=== PATIENT | female | born 1975 | race Caucasian/White ===

== ENCOUNTER 2023-08-11 08:57 | Emergency (ER) | payer OTHER, SELFPAY ==
[2023-08-11 09:14] VITALS: BP 113/69; PULSE 89; RESP 16; TEMP 37; O2SAT 100
--- NOTE | 2023-08-11 09:23 | ED.EYEPROB ---
HPI - Eye Problem General Chief complaint: Eye Problems Stated complaint: Eye Irritation Time Seen by Provider: 08/11/23 09:23 Source: patient Mode of arrival: ambulatory Limitations: no limitations History of Present Illness HPI Narrative: 48 yo F presents with c/o R eye burning, redness, swelling, purulen drainage since yesterday morning. Wears contacts. Does not sleep in them but works 24 hour shifts so wears them for long period of time. Denies vision change. All systems reviewed and negative except as noted above. Related Data Home Medications Medication Instructions Recorded Confirmed No Home Medications 08/11/23 08/11/23 Allergies Allergy/AdvReac Type Severity Reaction Status Date / Time No Known Allergies Allergy Verified 08/11/23 09:29 Review of Systems Review of Systems: CONSTITUTIONAL: Denies fever, chills, or sweats. EYES: Denies visual changes . Reports right eye redness, burning, discharge. ENT: Denies rhinorrhea, congestion, sore throat, or otalgia. CARDIOVASCULAR: Denies chest pain, palpitations, or edema. RESPIRATORY: Denies cough or dyspnea. GASTROINTESTINAL: Denies abdominal pain, nausea, vomiting, or diarrhea. GENITOURINARY: Denies dysuria or hematuria. SKIN: Denies rash or itching. MUSCULOSKELETAL: Denies back pain, joint pain, or myalgia. NEUROLOGIC: Denies headache, numbness, or weakness. PSYCHIATRIC: Denies anxiety or depression. All other systems reviewed are negative, except as documented in HPI. PMFSH Comments At time of signature, agree with nursing past medical, surgical, social and family history. There is no relevant family history pertinent to the presenting complaint. Exam Narrative: GENERAL: This is a well-nourished, well-developed patient, in no apparent distress. HEAD: normocephalic, atraumatic. EYES: PERRL. Sclera and conjunctiva erythematous to right eye. Left sclera and conjunctiva clear/white. yellowish, repeat drainage from right eye. Mild swelling to upper and lower eyelids Of right eye. Vision is grossly intact. EARS: External ears normal NOSE: External nose normal NECK: Neck supple, non-tender without lymphadenopathy, masses or thyromegaly. CARDIOVASCULAR: Regular rate and rhythm without murmurs, gallops, or rubs. RESPIRATORY: Clear to auscultation. Breath sounds equal bilaterally. No wheezes, rales, or rhonchi. SKIN: warm, Dry, intact with no suspicious lesions or rash, good texture and turgor. NEURO: awake, alert, and oriented to person, place and time. There were no obvious focal neurologic abnormalities. EXTREMITIES: No joint tenderness, effusion, or edema noted. Course Course Level of Care: Express Care Visit Vital Signs Vital signs: Vital Signs Temperature 37.0 C 08/11/23 09:14 Pulse Rate 89 08/11/23 09:14 Respiratory Rate 16 08/11/23 09:14 Blood Pressure 113/69 08/11/23 09:14 Pulse Oximetry 100 08/11/23 09:14 Oxygen Delivery Room Air 08/11/23 09:14 Temperature 37.0 C 08/11/23 09:14 Pulse Rate 89 08/11/23 09:14 Respiratory Rate 16 08/11/23 09:14 Blood Pressure 113/69 08/11/23 09:14 Pulse Oximetry 100 08/11/23 09:14 Oxygen Delivery Room Air 08/11/23 09:14 reviewed MDM - Eye Problem MDM Narrative Medical decision making narrative: Patient is aware of diagnosis, understands and agrees to treatment plan. Anticipatory guidance given. Patient agrees to follow-up as directed and is aware of reasons to seek care at the emergency department. Portions of this record may have been created with voice recognition software Differential Diagnosis Differential diagnosis: Likely corneal abrasion, conjunctivitis and corneal ulcer Discharge Plan Discharge Clinical Impression: Acute bacterial conjunctivitis of right eye Patient Disposition: Home, Self-Care Condition: Stable Instructions: Antibiotic Form, Conjunctivitis (ED) Additional Instructions: Place antibiotic eyedrops a
== END 2023-08-11 09:35 | disposition home or self-care (01) ==
PROVIDERS: Emergency Provider Nurse Practitioner Family
DX: H10.31 Unspecified acute conjunctivitis, right eye (principal)
CPT/HCPCS: 99213; G0463